=== PATIENT | female | born 1985 | race Caucasian/White ===

== ENCOUNTER 2016-06-02 15:35 | Observation (INO) | payer OTHER ==
[2016-06-02] MEDS ORDERED: PRENATAL-U CAPS1 CAP PO (16:28)
== END 2016-06-02 17:20 ==
LOC: LDR 15:35
PROVIDERS: ADMIT Advanced Practice Midwife
DX: Z03.71 Encounter for suspected problem with amniotic cavity and membrane ruled out (principal); Z3A.39 39 weeks gestation of pregnancy

== ENCOUNTER 2016-06-04 02:03 | Inpatient (IN) | payer OTHER ==
[~2016-06-04 02:03] MED LIST: PRENATAL-U CAPS1 CAP PO
[2016-06-04 02:56] LABS: BASO % 0.1 % (0-2); EOS % 0.2 % (0-7); HCT-HEMATOCRIT 35.1 % (34.0-49.0); HGB-HEMOGLOBIN 11.5 gm/dl (12.0-15.5); IMMATURE GRANULOCYTES ABSOLUTE 0.06 tho/cmm (0-0.03); IMMATURE GRANULOCYTES PERCENT 0.4 % (0-0.3); LYMPH % 7.2 % (20-45); LYMPH ABSOLUTE COUNT 1.1 tho/cmm (0.8-4.5); MCH (MEAN CORPUSCULAR HGB) 25.3 pg (28.0-32.0); MCHC MEAN CORPUSCULAR HGB CONC 32.8 % (32.0-36.0); MCV (MEAN CELL VOLUME) 77.1 fl (82.0-96.0); MEAN PLATELET VOLUME 12.5 cmc (9.4-12.4); NEUTROPHIL ABSOLUTE COUNT 13.6 tho/cmm (1.6-8.0); NEUTROPHIL-AUTOMATED 13.6 tho/cmm (1.6-8.0); NEUTROPHILS % 86.1 % (40-80); PLATELET COUNT 222 tho/cmm (150-450); RED BLOOD COUNT 4.55 mil/cmm (4.00-5.20); RED CELL DISTRIBUTION WIDTH 15.2 % (12.4-16.4); WHITE BLOOD COUNT 15.8 tho/cmm (4.0-10.0)
[2016-06-05 06:16] LABS: BASO % 0.2 % (0-2); EOS % 0.4 % (0-7); HCT-HEMATOCRIT 27.8 % (34.0-49.0); HGB-HEMOGLOBIN 8.9 gm/dl (12.0-15.5); IMMATURE GRANULOCYTES ABSOLUTE 0.05 tho/cmm (0-0.03); IMMATURE GRANULOCYTES PERCENT 0.5 % (0-0.3); LYMPH % 9.3 % (20-45); MCH (MEAN CORPUSCULAR HGB) 24.9 pg (28.0-32.0); MCV (MEAN CELL VOLUME) 77.9 fl (82.0-96.0); MEAN PLATELET VOLUME 11.7 cmc (9.4-12.4); MONO % 9.3 % (0-12); NEUTROPHIL ABSOLUTE COUNT 8.5 tho/cmm (1.6-8.0); NEUTROPHIL-AUTOMATED 8.5 tho/cmm (1.6-8.0); NEUTROPHILS % 80.3 % (40-80); PLATELET COUNT 158 tho/cmm (150-450); RED BLOOD COUNT 3.57 mil/cmm (4.00-5.20); RED CELL DISTRIBUTION WIDTH 15.7 % (12.4-16.4); WHITE BLOOD COUNT 10.5 tho/cmm (4.0-10.0)
[2016-06-06] MEDS ORDERED: IBUPROFEN800 M1 PO (01:02)
== END 2016-06-06 14:25 | DRG 775 ==
LOC: LDR 02:03 → OBGE 17:40
PROVIDERS: Registered Nurse Lactation Consultant; ADMIT Advanced Practice Midwife
PROC: 10E0XZZ Delivery of Products of Conception, External Approach (ICD-10-PCS; principal; 2016-06-04)
PROC: 0KQM0ZZ Repair Perineum Muscle, Open Approach (ICD-10-PCS; 2016-06-04)
DX: O70.1 Second degree perineal laceration during delivery (principal); Z37.0 Single live birth; Z3A.39 39 weeks gestation of pregnancy
CPT/HCPCS: J2405